=== PATIENT | male | born 1975 | race Caucasian/White ===

== ENCOUNTER 2016-07-22 22:37 | Emergency (ER) | payer BC ==
[2016-07-22 22:42] VITALS: TEMP 97.6
[2016-07-22] MEDS ORDERED: ASPIRIN 81 MG CHEW PO STA (22:58)
--- NOTE | 2016-07-22 23:00 | ED ---
Chest Pain HPI - General Chief Complaint: Chest Pain Stated Complaint: CHEST PAIN Time Seen by Provider: 07/22/16 22:49 Source: patient Mode of arrival: ambulatory Limitations: no limitations - History of Present Illness Initial Comments: This patient is a 40-year-old man who complains of having left-sided chest pain that started around 4 AM yesterday when he was on a flight here from [facility]. The patient had spent the last week there on vacation. The patient states that the pain is aching, constant, 9 out of 10. He has noted it is worse if he lies back. It is somewhat relieved if he sits up. The patient also has had a bit of a nonproductive cough associated. MD Complaint: chest pain Onset/Timin -: hour(s) Onset: during rest Pain Location: left chest Pain Radiation: other (Left shoulder) Severity: severe Severity scale (1-10): 9 Quality: aching Consistency: constant Improves With: nothing Worsens With: inspiration, supine Context: recent travel Other Symptoms: cough Treatments Prior to Arrival: none - Related Data Home Medications Medication Instructions Recorded Confirmed Hydrocodone/Acetaminophen [Lortab 1 tab PO TID PRN 10/30/14 07/22/16 10-325 mg Tablet] Gabapentin [Neurontin] 300 mg PO TID 07/22/16 07/22/16 Previous Rx's Medication Instructions Recorded Azithromycin [Zithromax Z-pack] 250 mg PO DIRECTED #6 tab 07/23/16 Ibuprofen [Motrin] 800 mg PO Q8HR PRN #20 tab 07/23/16 Allergies Allergy/AdvReac Type Severity Reaction Status Date / Time No Known Allergies Allergy Verified 07/22/16 23:05 Review of Systems ROS Statement: Those systems with pertinent positive or pertinent negative responses have been documented in the HPI. ROS Other: All systems not noted in ROS Statement are negative. Constitutional: Denies: fever, chills Respiratory: Reports: cough, dyspnea. Denies: wheezes, hemoptysis Cardiovascular: Reports: chest pain. Denies: palpitations, dyspnea on exertion , orthopnea, edema, syncope Gastrointestinal: Denies: abdominal pain, nausea, vomiting Genitourinary: Denies: dysuria, hematuria Musculoskeletal: Denies: back pain Skin: Denies: rash Neurological: Denies: headache, weakness, numbness EKG Findings - EKG Results: EKG: interpreted by SAMANTHA HOUSE, sinus rhythm (Rate 98 bpm), normal axis, normal QRS, normal ST/T, no acute changes Past Medical History Past Medical History: No Reported History Additional Past Medical History / Comment(s): neuropathy History of Any Multi-Drug Resistant Organisms: None Reported Past Surgical History: Orthopedic Surgery Additional Past Surgical History / Comment(s): back fusion x 2 Past Psychological History: No Psychological Hx Reported Smoking Status: Current every day smoker Past Alcohol Use History: Rare Past Drug Use History: None Reported General Exam Limitations: no limitations General appearance: alert, in no apparent distress Head exam: Present: atraumatic, normocephalic Eye exam: Present: normal appearance. Absent: scleral icterus, conjunctival injection ENT exam: Present: normal oropharynx Neck exam: Present: normal inspection Respiratory exam: Present: normal lung sounds bilaterally. Absent: respiratory distress, wheezes, rales, rhonchi, stridor, chest wall tenderness, accessory muscle use, decreased breath sounds, prolonged expiratory Cardiovascular Exam: Present: regular rate, normal rhythm, normal heart sounds. Absent: systolic murmur, diastolic murmur, rubs, gallop GI/Abdominal exam: Present: soft. Absent: distended, tenderness, guarding, rebound Extremities exam: Present: normal inspection, normal capillary refill. Absent: pedal edema, calf tenderness Back exam: Present: normal inspection. Absent: CVA tenderness (R), CVA tenderness (L) Neurological exam: Present: alert Skin exam: Present: warm, dry, intact, normal color. Absent: rash Course Vital Signs 07/22/16 22:39 Temperature 97.6 F Pulse Rate 102 H Respiratory 20 Rate Blood Pressure 141/87 O2 Sat by Pulse 97 Oximetry Disposition Clinical Impression: Pleuritis Narrative: Possible pneumonia Disposition: HOME SELF-CARE Condition: Good Instructions: Pleurisy (ED), Pneumonia (ED) Prescriptions: Azithromycin [Zithromax Z-pack] 250 mg PO DIRECTED #6 tab Ibuprofen [Motrin] 800 mg PO Q8HR PRN #20 tab PRN Reason: Pain Referrals: None,Stated [Primary Care Provider] - 1-2 days Katherin Aguirre MD [REFERRING] - 1-2 days
[2016-07-22] MEDS ORDERED: RX INFO: IV CONTRAST WAS GIVEN 1 EACH MISC MISCELLANE PRN (23:01)
[2016-07-22] MEDS ORDERED: SODIUM CHLORIDE 0.9% 1,000 ML IV ONE (23:07)
[2016-07-22 23:12] LABS: Basophils # (A) 0.2 k/uL (0-0.2); Basophils % (A) 1 %; CH 32.5; CHCM 34.8; Eosinophils # (A) 0.6 k/uL (0-0.7); Eosinophils % (A) 5 %; HCT 46.4 % (39.0-53.0); HDW 2.43; HGB 15.5 gm/dL (13.0-17.5); Luc % (Auto) 2; Lymphocytes % (A) 34 %; MCH 31.5 pg (25.0-35.0); MCHC 33.5 g/dL (31.0-37.0); MCV 93.9 fL (80.0-100.0); Monocytes # (A) 0.5 k/uL (0-1.0); Monocytes % (A) 5 %; Neutrophils # (A) 6.2 k/uL (1.3-7.7); Neutrophils % (A) 54 %; RBC 4.94 m/uL (4.30-5.90); RDW 13.8 % (11.5-15.5); WBC 11.7 k/uL (3.8-10.6); WBC (Perox) 10.87
[2016-07-22 23:24] LABS: ALT 32 U/L (21-72); AST 22 U/L (17-59); Alkaline Phosphatase 87 U/L (38-126); Amylase 64 U/L (30-110); Anion Gap 10 mmol/L; Blood Urea Nitrogen 15 mg/dL (9-20); Calcium 9.4 mg/dL (8.4-10.2); Carbon Dioxide 25 mmol/L (22-30); Chloride 102 mmol/L (98-107); Glucose 109 mg/dL (74-99); Magnesium 1.7 mg/dL (1.6-2.3); Non-African American GFR(MDRD) >60 (>60 ml/min/1.73 sqM); Potassium 3.8 mmol/L (3.5-5.1); Sodium 137 mmol/L (137-145); Total Bilirubin 0.5 mg/dL (0.2-1.3); Total Protein 7.1 g/dL (6.3-8.2)
[2016-07-22 23:28] LABS: Partial Thromboplastin Time 27.2 sec (22.0-30.0)
--- NOTE | 2016-07-22 23:46 | CT ---
EXAM: CT Angiography Chest With Intravenous Contrast. CLINICAL HISTORY: Reason: Pain TECHNIQUE: Axial computed tomographic angiography images of the chest with intravenous contrast using pulmonary embolism protocol. CTDI is 9.9 mGy and DLP is 355.6 mGy-cm This CT exam was performed using one or more of the following dose reduction techniques: automated exposure control, adjustment of the mA and/or kV according to patient size, and/or use of iterative reconstruction technique. MIP reconstructed images were created and reviewed. Coronal and sagittal reformatted images were created and reviewed. COMPARISON: No relevant prior studies available. FINDINGS: Pulmonary arteries: No evidence of pulmonary embolism. Aorta: No acute findings. No thoracic aortic aneurysm. Lungs: Extensive paraseptal and centrilobular emphysematous changes seen bilaterally. Left basilar platelike atelectasis. Right basilar atelectasis. Pleural space: Unremarkable. No significant effusion. No pneumothorax. Heart: Unremarkable. No cardiomegaly. No significant pericardial effusion. No evidence of RV dysfunction. Bones/joints: No acute fracture. No dislocation. Soft tissues: Unremarkable. Lymph nodes: Prevascular node measuring up to 17 mm. Paratracheal lymph nodes measuring up to 18 mm. Subcarinal lymph node measuring up to 15 mm. IMPRESSION: 1. No evidence of pulmonary embolism. 2. Extensive paraseptal and centrilobular emphysematous changes seen bilaterally. 3. Left basilar platelike atelectasis. Right basilar atelectasis. 4. Nonspecific mildly prominent mediastinal lymph nodes as described.
[2016-07-23] MEDS ORDERED: AZITHROMYCIN 500 MG TAB PO STA (00:28)
[2016-07-23 01:14] VITALS: BP 124/86; PULSE 89; RESP 16
== END 2016-07-23 01:14 | disposition home or self-care (01) ==
LOC: EC 22:37
DX: R09.1 Pleurisy (principal); M25.512 Pain in left shoulder; G62.9 Polyneuropathy, unspecified; F17.200 Nicotine dependence, unspecified, uncomplicated; Z79.899 Other long term (current) drug therapy
CPT/HCPCS: 36415; 93005; 85379; 80053; 82150; 83690; 83735; 84484; 85025; 85610; 85730; 71275; 99285; 96365; 96361; Q9967; J0696

== ENCOUNTER → 2018-06-08 | Outpatient (CLI) | payer BC ==
[2018-06-08 11:02] LABS: HCT 51.3 % (39.0-53.0); HGB 16.9 gm/dL (13.0-17.5); MCH 31.5 pg (25.0-35.0); MCHC 32.9 g/dL (31.0-37.0); MCV 95.9 fL (80.0-100.0); Mean Platelet Volume 6.4; Platelet Count 291 k/uL (150-450); RBC 5.35 m/uL (4.30-5.90); RDW 13.5 % (11.5-15.5); WBC 11.1 k/uL (3.8-10.6)
== END ==
LOC: LABPAT 10:00
PROVIDERS: ATTEND Surgery
DX: Z01.812 Encounter for preprocedural laboratory examination (principal); K43.9 Ventral hernia without obstruction or gangrene; K43.2 Incisional hernia without obstruction or gangrene
CPT/HCPCS: 36415; 85027

== ENCOUNTER 2018-06-10 07:41 | Day surgery (SDC) | payer BC ==
[~2018-06-10 07:41] MED LIST: HEPARIN SODIUM,PORCINE 5,000 UNIT/ML 1 ML VIAL SQ ONE; ceFAZolin IN SWFI 2 GM/20 ML SYRINGE IVP ONE
[2018-06-10] MEDS ORDERED: LACTATED RINGERS 1,000 ML IV SCH (07:48)
[2018-06-10] MEDS ORDERED: SCOPOLAMINE 1.5MG/72HR PATCH TRANSDERM ONE (07:48)
[2018-06-10] MEDS ORDERED: DEXAMETHASONE SOD PHOSPHATE 10 MG/ML 1 ML VIAL IV ONE (07:48)
[2018-06-10] MEDS ORDERED: HYDROmorphone 0.5 MG/0.5 ML SYRINGE IVP PRN (07:48)
[2018-06-10] MEDS ORDERED: LIDOCAINE 1% 20 ML VIAL (10MG/ML) FOR IV START INTRADERMA PRN (07:48)
[2018-06-10] MEDS ORDERED: ONDANSETRON 4 MG/2 ML VIAL IVP ONE (07:48)
[2018-06-10] MEDS ORDERED: MIDAZOLAM (PF) 2 MG/2 ML VIAL IV PRN (07:48)
[2018-06-10 08:04] VITALS: TEMP 97.4
--- NOTE | 2018-06-10 09:47 | P.GSHP ---
History of Present Illness H&P Date: 06/10/18 Chief Complaint: Ventral hernia Patient on our service. Patient has a history of a ventral hernia. Previously was not causing him any trouble. Recently he was on a cruise however and developed acute pain at the hernia site. This eventually became reduced in size and his pain improved. He came back to [place] and call my office to schedule repair. Still causing mild discomfort. No change in bowel habits. No nausea or vomiting. Past Medical History Past Medical History: No Reported History Additional Past Medical History / Comment(s): neuropathy, right leg (POST BACK SURGERIES). History of Any Multi-Drug Resistant Organisms: None Reported Past Surgical History: Back Surgery, Ear Surgery, Hernia Repair Additional Past Surgical History / Comment(s): laminectomy x 2. left ear reconstruction. bilateral ing hernias. undescended testical Past Anesthesia/Blood Transfusion Reactions: No Reported Reaction Past Psychological History: No Psychological Hx Reported Smoking Status: Current every day smoker Past Alcohol Use History: Rare Additional Past Alcohol Use History / Comment(s): 1PPD FOR 20 YRS. Past Drug Use History: None Reported - Past Family History Mother Family Medical History: Cancer Father Family Medical History: Cancer Medications and Allergies Home Medications Medication Instructions Recorded Confirmed Type No Known Home Medications 06/08/18 06/10/18 History Allergies Allergy/AdvReac Type Severity Reaction Status Date / Time No Known Allergies Allergy Verified 06/10/18 07:51 Surgical - Exam Vital Signs Temp Pulse Resp BP Pulse Ox 97.4 F L 103 H 18 122/80 94 L 06/10/18 08:02 06/10/18 08:02 06/10/18 08:02 06/10/18 08:02 06/10/18 08:02 Physical exam: General: Well-developed, well-nourished HEENT: Normocephalic, sclerae nonicteric Abdomen: Nontender, nondistended, incarcerated ventral hernia 4-5 cm above the umbilicus slightly to the right of midline Extremities: No edema Neuro: Alert and oriented Assessment and Plan (1) Incarcerated ventral hernia Narrative/Plan: Will proceed with operative repair open of this hernia with mesh. Risks of bleeding, infection, recurrence, bladder and bowel injury, numbness, nerve injury were discussed with the patient. The patient understands and wishes to proceed. Current Visit: Yes Status: Acute Code(s): K43.6 - OTHER AND UNSP VENTRAL HERNIA WITH OBSTRUCTION, W/O GANGRENE SNOMED Code(s): 376980263
[2018-06-10] MEDS ORDERED: MIDAZOLAM 2 MG/2 ML VIAL ONE (10:00)
[2018-06-10] MEDS ORDERED: KETOROLAC 30 MG/ML 1 ML VIAL ONE (10:00)
[2018-06-10] MEDS ORDERED: SUCCINYLCHOLINE CHLORIDE 100 MG/5 ML SYR IV ONE (10:00)
[2018-06-10] MEDS ORDERED: fentaNYL (PF) 50 MCG/ML 2 ML AMP ONE (10:00)
[2018-06-10] MEDS ORDERED: ROCURONIUM BROMIDE 10 MG/ML 10 ML VIAL IV ONE (10:00)
[2018-06-10] MEDS ORDERED: PROPOFOL 10 MG/ML 20 ML VIAL IV ONE (10:00)
[2018-06-10] MEDS ORDERED: NEOSTIGMINE 1 MG/ML 10 ML VIAL ONE (10:00)
[2018-06-10] MEDS ORDERED: GLYCOPYRROLATE 0.2 MG/ML 2 ML VIAL ONE (10:00)
[2018-06-10] MEDS ORDERED: LIDOCAINE 1% INJ 10MG/ML (20 ML MDV) ONE (10:00)
[2018-06-10] MEDS ORDERED: ceFAZolin 1,000 MG VIAL ONE (10:00)
[2018-06-10] MEDS ORDERED: BUPIVACAINE (PF) 0.25% 30 ML VIAL SQ ONE (10:25)
[2018-06-10] MEDS ORDERED: HYDROcodone/APAP 5-325MG 1 EACH TAB PO PRN (10:51)
[2018-06-10] MEDS ORDERED: NALOXONE 0.4 MG/ML 1 ML VIAL IV PRN (10:51)
--- NOTE | 2018-06-10 10:55 | P.OP ---
Date of Procedure: 06/10/18 Procedure(s) Performed: PREOPERATIVE DIAGNOSIS: Incarcerated the ventral hernia POSTOPERATIVE DIAGNOSIS: Same PROCEDURE: Incarcerated the ventral hernia with mesh SURGEON: Shaji EBL: Minimal ANESTHESIA: Gen. COMPLICATIONS: None OPERATIVE PROCEDURE: Patient placed on the operating table in the supine position. Abdomen was prepped and draped in usual sterile fashion. An incision was made superior to the umbilicus vertically overlying the palpable mass. Dissection through the subcutaneous tissues took place using electrocautery. The patient's hernia sac was identified. The hernia sac was carefully dissected down to the level of the fascia where it was excised. A single defect was identified measuring 1 cm in size. The edges were debrided creating a slightly larger opening. The 4.3 ventral ex mesh was placed in the preperitoneal space. This was sutured in place using interrupted 0 Ethibond sutures. The defect in the fascia was then reapproximated in a horizontal manner using a vest over pants fashion. This took place using 0 Ethibond sutures. The folding edge was tacked down using 0 Ethibond sutures as well. The subcutaneous tissues were closed using 3-0 Vicryl sutures. The skin was closed 4-0 Monocryl sutures. Skin glue was then applied. DISPOSITION: Stable to recovery room
[2018-06-10 11:45] VITALS: RESP 16
[2018-06-10] MEDS ORDERED: HYDROcodone/APAP 5-325MG 1 EACH TAB PO ONE (12:31)
[2018-06-10 12:45] VITALS: BP 118/77; PULSE 73
== END 2018-06-10 13:00 | disposition home or self-care (01) ==
LOC: OR 07:41
PROVIDERS: ATTEND Surgery
DX: K43.6 Other and unspecified ventral hernia with obstruction, without gangrene (principal); F17.210 Nicotine dependence, cigarettes, uncomplicated
CPT/HCPCS: 86900; 86901; 86850; 88302; 49561; 49568; C1781; J2250; J1644; J1100; J2710; J2405; J0690 ×2; J2001; J3010; J1885; J0330; J2704; J1170

== ENCOUNTER → 2020-07-05 | Outpatient (CLI) | payer BC ==
--- NOTE | 2020-07-05 16:15 | XR ---
EXAMINATION TYPE: XR chest 2V DATE OF EXAM: 07/05/2020 COMPARISON: 11/18/2014 HISTORY: Chest pain TECHNIQUE: Frontal and lateral views of the chest are obtained. FINDINGS: There is no focal air space opacity. No evidence for pneumothorax. No pleural effusion. The cardiac silhouette size is within normal limits. The osseous structures are grossly intact. IMPRESSION: 1. No acute cardiopulmonary process.
== END | disposition home or self-care (01) ==
LOC: RADXRMAIN 15:51
PROVIDERS: ATTEND Family Medicine
DX: J44.9 Chronic obstructive pulmonary disease, unspecified (principal)
CPT/HCPCS: 71046

== ENCOUNTER 2021-03-21 22:47 | Emergency (ER) | payer BC ==
[2021-03-21 22:54] VITALS: TEMP 100
[2021-03-21 23:20] VITALS: BP 133/83; PULSE 99; RESP 18
[2021-03-22] MEDS ORDERED: ACETAMINOPHEN TAB 500 MG TAB PO STA (00:06)
[2021-03-22] MEDS ORDERED: IBUPROFEN 600 MG TAB PO STA (00:06)
--- NOTE | 2021-03-22 00:19 | ED ---
URI HPI - General Chief Complaint: Upper Respiratory Infection Stated Complaint: Fever, headache, nausea, Covid exposure Time Seen by Provider: 03/21/21 22:58 Source: patient, RN notes reviewed Mode of arrival: ambulatory Limitations: no limitations - History of Present Illness Initial Comments: 45-year-old male presents emergency Department with chief complaint of Hospital COVID-19. Patient states his son tested positive. Patient states he took at home tests which was negative when he developed symptoms today. Patient does complain of fever bodyaches slight cough, no taste. Patient denies any increasing shortness of breath patient does have COPD. Patient denies any GI symptoms including nausea, vomiting, diarrhea constipation. - Related Data Previous Rx's Medication Instructions Recorded Hydrocodone/Acetaminophen [[place] 1 tab PO Q6HR PRN 3 Days #10 tab 06/10/18 5-325] Allergies Allergy/AdvReac Type Severity Reaction Status Date / Time No Known Allergies Allergy Verified 03/21/21 22:51 Review of Systems ROS Statement: Those systems with pertinent positive or pertinent negative responses have been documented in the HPI. ROS Other: All systems not noted in ROS Statement are negative. Past Medical History Past Medical History: COPD Additional Past Medical History / Comment(s): neuropathy, right leg (POST BACK SURGERIES). History of Any Multi-Drug Resistant Organisms: None Reported Past Surgical History: Back Surgery, Ear Surgery, Hernia Repair Additional Past Surgical History / Comment(s): laminectomy x 2. left ear reconstruction. bilateral ing hernias. undescended testical Past Anesthesia/Blood Transfusion Reactions: No Reported Reaction Past Psychological History: No Psychological Hx Reported Smoking Status: Current every day smoker Past Alcohol Use History: None Reported Past Drug Use History: None Reported - Past Family History Mother Family Medical History: Cancer Father Family Medical History: Cancer General Exam Limitations: no limitations General appearance: alert, in no apparent distress Head exam: Present: atraumatic, normocephalic, normal inspection Eye exam: Present: normal appearance, PERRL, EOMI. Absent: scleral icterus, conjunctival injection, periorbital swelling ENT exam: Present: normal exam, normal oropharynx, mucous membranes moist Neck exam: Present: normal inspection. Absent: tenderness, meningismus, lymphadenopathy Respiratory exam: Present: normal lung sounds bilaterally. Absent: respiratory distress, wheezes, rales, rhonchi, stridor Cardiovascular Exam: Present: normal rhythm, tachycardia, normal heart sounds. Absent: systolic murmur, diastolic murmur, rubs, gallop, clicks Course Vital Signs 03/21/21 03/21/21 22:51 23:17 Temperature 100.0 F H Pulse Rate 109 H 99 Respiratory 20 18 Rate Blood Pressure 135/93 133/83 O2 Sat by Pulse 99 Oximetry Medical Decision Making - Medical Decision Making Patient's positive for COVID-19. Patient did have noted fevers given antipyretics. Patient did receive monoclonal antibodies will be discharged in stable condition return parameters were discussed. - Lab Data Lab Results 03/21/21 Range/Units 22:57 Coronavirus (PCR) Detected A (Not Detectd) Disposition Clinical Impression: COVID-19 Disposition: HOME SELF-CARE Condition: Stable Instructions (If sedation given, give patient instructions): Coronavirus Disease 2019 (COVID-19) Additional Instructions: Please return to the Emergency Department if symptoms worsen or any other concerns. Is patient prescribed a controlled substance at d/c from ED?: No Referrals: Baron Worley MD [Primary Care Provider] - 1-2 days Time of Disposition: 00:18
[2021-03-22] MEDS ORDERED: SODIUM CHLORIDE 0.9% 50 ML IVPB ONE (00:45)
[2021-03-22] MEDS ORDERED: CASIRIVIMAB (REGN10933) (EUA) 600 MG, IMDEVIMAB (REGN10987) (EUA) 600 MG in SODIUM CHLO... IVPB ONE (01:00)
== END 2021-03-22 02:33 | disposition home or self-care (01) ==
LOC: EC 22:47
DX: U07.1 COVID-19 (principal); J44.9 Chronic obstructive pulmonary disease, unspecified; F17.200 Nicotine dependence, unspecified, uncomplicated
CPT/HCPCS: 99283; 96360; 87635; Q0244

== ENCOUNTER 2021-07-12 23:14 | Emergency (ER) | payer BC ==
[2021-07-13 00:27] VITALS: TEMP 97.1
[2021-07-13] MEDS ORDERED: ACETAMINOPHEN TAB 500 MG TAB PO STA ×2 (01:30→02:30)
[2021-07-13] MEDS ORDERED: KETOROLAC 15 MG/ML 1 ML VIAL IM STA (01:30)
[2021-07-13 02:25] VITALS: BP 151/99; PULSE 87; RESP 18
--- NOTE | 2021-07-13 02:34 | XR ---
EXAMINATION TYPE: XR thoracic spine 2V DATE OF EXAM: 07/13/2021 COMPARISON: NONE HISTORY: Back pain TECHNIQUE: 3 views FINDINGS: Thoracic vertebra have normal spacing and alignment. Posterior elements are intact. There i s no paraspinal mass. There is no compression fracture. IMPRESSION: Negative thoracic spine exam.
--- NOTE | 2021-07-13 02:36 | XR ---
EXAMINATION TYPE: XR cervical spine comp DATE OF EXAM: 07/13/2021 COMPARISON: NONE HISTORY: Neck pain TECHNIQUE: 5 view FINDINGS: Cervical vertebra have normal alignment. Disc spaces are fairly normal. Posterior elements are intact. The neural foramina are well-maintained. Atlantoaxial facet joints are normal. There are no cervical ribs. IMPRESSION: Negative cervical spine exam.
--- NOTE | 2021-08-10 04:12 | ED ---
Back Pain HPI - General Chief Complaint: Back Pain/Injury Stated Complaint: Neck Swelling Time Seen by Provider: 07/13/21 01:20 Source: patient - History of Present Illness Initial Comments: This is a pleasant 45-year-old male who presents to the emergency department stating that he sneezed and pulled a muscle in his neck. Patient states that he felt like there was a lump between her shoulder blades. Patient denying any other symptomology. It is sharp, exacerbated by movement, alleviated by rest, no radiation. She does have a history of bad back. No headache, no fever or chills, no changes in vision or hearing, no sore throat or difficulty with speech,, no chest pain or shortness of breath, no abdominal pain, no nausea or vomiting, no changes in urination or bowel movements, no numbness or tingling, no extremity pain, no skin rashes or lesions. - Related Data Previous Rx's Medication Instructions Recorded Hydrocodone/Acetaminophen [[place] 1 tab PO Q6HR PRN 3 Days #10 tab 06/10/18 5-325] Acetaminophen [Tylenol] 500 mg PO Q4-6H PRN #24 tab 07/13/21 Cyclobenzaprine [Flexeril] 10 mg PO TID PRN #20 tab 07/13/21 Ibuprofen [Motrin] 600 mg PO Q8HR PRN #30 tab 07/13/21 Allergies Allergy/AdvReac Type Severity Reaction Status Date / Time No Known Allergies Allergy Verified 07/13/21 00:27 Review of Systems ROS Statement: Those systems with pertinent positive or pertinent negative responses have been documented in the HPI. ROS Other: All systems not noted in ROS Statement are negative. Past Medical History Past Medical History: COPD Additional Past Medical History / Comment(s): neuropathy, right leg (POST BACK SURGERIES) History of Any Multi-Drug Resistant Organisms: None Reported Past Surgical History: Back Surgery, Ear Surgery, Hernia Repair Additional Past Surgical History / Comment(s): laminectomy x 2. left ear reconstruction. bilateral ing hernias. undescended testical, "throat" scope done 06/2021 Past Anesthesia/Blood Transfusion Reactions: No Reported Reaction Past Psychological History: No Psychological Hx Reported Smoking Status: Current every day smoker Past Alcohol Use History: None Reported Past Drug Use History: None Reported - Past Family History Mother Family Medical History: Cancer Father Family Medical History: Cancer General Exam General appearance: alert, in no apparent distress Head exam: Present: atraumatic, normocephalic, normal inspection Eye exam: Present: normal appearance, PERRL, EOMI. Absent: scleral icterus, conjunctival injection, periorbital swelling ENT exam: Present: normal exam, mucous membranes moist Neck exam: Present: normal inspection, tenderness (Mild tenderness and cervical paraspinals and trapezius area. No midline tenderness.), full ROM. Absent: meningismus, lymphadenopathy Respiratory exam: Present: normal lung sounds bilaterally. Absent: respiratory distress, wheezes, rales, rhonchi, stridor Cardiovascular Exam: Present: regular rate, normal rhythm, normal heart sounds. Absent: systolic murmur, diastolic murmur, rubs, gallop, clicks GI/Abdominal exam: Present: soft, normal bowel sounds. Absent: distended, tenderness, guarding, rebound, rigid Extremities exam: Present: normal inspection, full ROM, normal capillary refill. Absent: tenderness, pedal edema, joint swelling, calf tenderness Back exam: Present: normal inspection Neurological exam: Present: alert, oriented X3, CN II-XII intact Psychiatric exam: Present: normal affect, normal mood Skin exam: Present: warm, dry, intact, normal color. Absent: rash Course Vital Signs 07/13/21 07/13/21 00:22 02:24 Temperature 97.1 F L Pulse Rate 88 87 Respiratory 19 18 Rate Blood Pressure 145/99 151/99 O2 Sat by Pulse 99 98 Oximetry Medical Decision Making - Medical Decision Making -There are no red flags for concerning back pathology. Specifically: -No history of cancer, this is not a mass effect, MRI not indicated. -No anticoagulation, this is not a bleed. -No fevers, no IVDU, this is not an infectious process. -With a normal neuro exam, and no urinary or bowel retention or incontinence, there is no clinical sign of motor defect or cauda equina - MRI is not indicated at this point. -No pulsating abdominal mass or risk factors for AAA. -Pain is relieved with rest, which is also less concerning. -I do not believe that x-rays or emergent MRI is indicated at this time. -We will treat symptomatically and discharge home with follow up instructions. -Stretching/strengthening exercise given to patient and they will be referred to physical therapy -Patient is instructed to use [id number] analgesics as directed on packaging for pain. Disposition Clinical Impression: Cervical strain, acute Disposition: HOME SELF-CARE Condition: Stable Instructions (If sedation given, give patient instructions): Cervical Strain (ED) Additional Instructions: Follow-up with your regular physician as directed. Return to the ER immediately if any symptoms worsen, new symptoms arise, or any other problems develop. Prescriptions: Cyclobenzaprine [Flexeril] 10 mg PO TID PRN #20 tab PRN Reason: Spasms Ibuprofen [Motrin] 600 mg PO Q8HR PRN #30 tab PRN Reason: Pain Acetaminophen [Tylenol] 500 mg PO Q4-6H PRN #24 tab PRN Reason: Pain Is patient prescribed a controlled substance at d/c from ED?: No Referrals: Baron Worley MD [Primary Care Provider] - 1-2 days
== END 2021-07-13 03:36 | disposition home or self-care (01) ==
LOC: EC 23:14
DX: S16.1XXA Strain of muscle, fascia and tendon at neck level, initial encounter (principal); J44.9 Chronic obstructive pulmonary disease, unspecified; F17.200 Nicotine dependence, unspecified, uncomplicated; X58.XXXA Exposure to other specified factors, initial encounter
CPT/HCPCS: 72070; 72050; 99283; 96372; J1885

== ENCOUNTER 2023-05-03 11:50 | Emergency (ER) | payer BC ==
[2023-05-03] MEDS ORDERED: SODIUM CHLORIDE 0.9% 1,000 ML IV STA (12:27)
--- NOTE | 2023-05-03 13:05 | CT ---
EXAMINATION TYPE: CT brain javier frankel con DATE OF EXAM: 05/03/2023 COMPARISON: None HISTORY: syncopoe CT DLP: 1304.6 mGycm Automated exposure control for dose reduction was used. TECHNIQUE: CT scan of the head and cervical spine are performed without contrast. Head CT: Ventricles, basal cisterns and sulci over convexities within normal limits and there is no mass, mass effect or shift of midline structures. No abnormal density is seen throughout the brain parenchyma and there is no acute intra or extra-axia l hemorrhage. Posterior fossa including the brainstem, fourth ventricle and cerebellar pontine angles are grossly n ormal. The intraorbital contents appear normal and symmetric. There is a small mucous retention cyst or poly p in the right maxillary sinus. CT cervical spine: Craniovertebral junction relationships and prevertebral soft tissues are normal. The cervical vertebral segments are normal in height and alignment and there is no fracture subluxati on. There is mild degenerative disease at the C5-6 and C6-7 levels. The bony cervical canal is widely patent. There is mild bony encroachment of the left C6-7 neural for marcus. The paraspinal soft tissues unremarkable. IMPRESSION: 1. Head CT: No acute bleed or mass effect. Mild chronic right maxillary sinusitis. 2. CT cervical spine: No acute trauma. Mild degenerative change in the lower cervical spine as descri bed.
--- NOTE | 2023-05-03 13:08 | XR ---
EXAMINATION TYPE: XR chest 2V DATE OF EXAM: 05/03/2023 COMPARISON: 07/05/2020 HISTORY: Syncope TECHNIQUE: Frontal and lateral views of the chest are obtained. FINDINGS: Forearm there is hazy and fine reticular opacity in the right middle lobe possibly representing a pne umonic infiltrate and clinical correlation is recommended. Left lung is clear. Heart and pulmonary vasculature are normal. The osseous structures are intact IMPRESSION: Development of infiltrate in the right middle lobe. Possible pneumonia. Clinical correlation follow-u p to resolution is recommended.
--- NOTE | 2023-05-03 13:17 | ED ---
General Adult HPI - General Chief complaint: Syncope Stated complaint: syncope Time Seen by Provider: 05/03/23 12:15 Source: patient, RN notes reviewed Mode of arrival: ambulatory Limitations: no limitations - History of Present Illness Initial comments: 47-year-old male presents emergency Department with chief complaint of syncopal episode. Patient states his walking his dog states she started not feeling well became very hot flushed feeling states that he passed on his back. Patient states that he defecated and urinated that time. He states he did have mild head injury. Patient denies any chest pain now but states he did have mild chest discomfort shortness breath. Patient denies any significant cardiac history denies any history of seizures. Patient states that he went to clean himself up and passed out again he states he felt common states he gets very flushed, hot feeling and states his tunnel vision. - Related Data Previous Rx's Medication Instructions Recorded Hydrocodone/Acetaminophen [[place] 1 tab PO Q6HR PRN 3 Days #10 tab 06/10/18 5-325] Acetaminophen [Tylenol] 500 mg PO Q4-6H PRN #24 tab 07/13/21 Cyclobenzaprine [Flexeril] 10 mg PO TID PRN #20 tab 07/13/21 Ibuprofen [Motrin] 600 mg PO Q8HR PRN #30 tab 07/13/21 Allergies Allergy/AdvReac Type Severity Reaction Status Date / Time No Known Allergies Allergy Verified 05/03/23 16:04 Review of Systems ROS Statement: Those systems with pertinent positive or pertinent negative responses have been documented in the HPI. ROS Other: All systems not noted in ROS Statement are negative. Past Medical History Past Medical History: COPD Additional Past Medical History / Comment(s): neuropathy, right leg (POST BACK SURGERIES) History of Any Multi-Drug Resistant Organisms: None Reported Past Surgical History: Back Surgery, Ear Surgery, Hernia Repair Additional Past Surgical History / Comment(s): laminectomy x 2. left ear reconstruction. bilateral ing hernias. undescended testical, "throat" scope done 06/2021 Past Anesthesia/Blood Transfusion Reactions: No Reported Reaction Past Psychological History: No Psychological Hx Reported Smoking Status: Current every day smoker Past Alcohol Use History: None Reported Past Drug Use History: None Reported - Past Family History Mother Family Medical History: Cancer Father Family Medical History: Cancer General Exam Limitations: no limitations General appearance: alert, in no apparent distress Head exam: Present: atraumatic, normocephalic, normal inspection Eye exam: Present: normal appearance, PERRL, EOMI. Absent: scleral icterus, conjunctival injection, periorbital swelling ENT exam: Present: normal exam, normal oropharynx, mucous membranes moist Neck exam: Present: normal inspection, full ROM. Absent: tenderness, meningismus, lymphadenopathy Respiratory exam: Present: normal lung sounds bilaterally. Absent: respiratory distress, wheezes, rales, rhonchi, stridor Cardiovascular Exam: Present: regular rate, normal rhythm, normal heart sounds. Absent: systolic murmur, diastolic murmur, rubs, gallop, clicks Back exam: Present: normal inspection, full ROM. Absent: tenderness Neurological exam: Present: alert, oriented X3, CN II-XII intact, reflexes normal. Absent: motor sensory deficit Course Vital Signs 05/03/23 05/03/23 05/03/23 12:08 12:29 13:33 Temperature 98 F Pulse Rate 100 102 H Respiratory 20 16 Rate Blood Pressure 100/71 119/82 Blood Pressure 110/81 [Right Arm Sitting] Blood Pressure 112/78 [Right Arm Standing] Blood Pressure 118/83 [Right Arm Supine] O2 Sat by Pulse 99 95 Oximetry 05/03/23 05/03/23 14:00 15:07 Temperature Pulse Rate 103 H 91 Respiratory 18 16 Rate Blood Pressure 126/84 135/83 Blood Pressure [Right Arm Sitting] Blood Pressure [Right Arm Standing] Blood Pressure [Right Arm Supine] O2 Sat by Pulse 98 Oximetry EKG Findings - EKG Comments: EKG Findings:: EKG performed at 12:23 sinus tachycardia rate of 100 per 172 QRS 71 QT/QTC 321/378 - EKG Results: EKG: interpreted by ERMD Medical Decision Making - Medical Decision Making Was pt. sent in by a medical professional or institution (, PA, BEARINGIZER, urgent care, hospital, or shelter...) When possible be specific @ -No Did you speak to anyone other than the patient for history (EMS, parent, family, police, friend...)? What history was obtained from this source @ -No Did you review nursing and triage notes (agree or disagree)? Why? @ -I reviewed and agree with nursing and triage notes Were old charts reviewed (outside hosp., previous admission, EMS record, old EKG, old radiological studies, urgent care reports/EKG's, shelter records)? Report findings @ -No old charts were reviewed Differential Diagnosis (chest pain, altered mental status, abdominal pain women, abdominal pain men, vaginal bleeding, weakness, fever, dyspnea, syncope, headache, dizziness, GI bleed, back pain, seizure, CVA, palpatations, mental health, musculoskeletal)? @ -Differential Syncope: Valvular disease, hypertrophic cardiomyopathy, pulmonary embolism, tamponade, tachycardia, bradycardia, DE, hypovolemia, hemorrhage, dissection, anemia, intracranial hemorrhage, seizure, hypoglycemia, carbon monoxide poisoning, this is not meant to be an all-inclusive list.e EKG interpreted by me (3pts min.). @ -As above X-rays interpreted by me (1pt min.). @ -Chest x-ray shows COPD changes CT interpreted by me (1pt min.). @ -[CT brain, C-spine showing no acute intracranial hemorrhage, mass effect, cervical fracture or malalignment CT angiography for PE chest negative for acute abnormality no PE no infiltrate U/S interpreted by me (1pt. min.). @ -None done What testing was considered but not performed or refused? (CT, X-rays, U/S, labs)? Why? @ -None What meds were considered but not given or refused? Why? @ -None Did you discuss the management of the patient with other professionals (marlene le i.e. , PA, BEARINGIZER, lab, RT, psych nurse, 7th grade social studies teacher, senior field engineer, teacher, quality officer, case assembler)? Give summary @ -No Was smoking cessation discussed for >3mins.? @ -No Was critical care preformed (if so, how long)? @ -No Were there social determinants of health that impacted care today? How? (Homelessness, low income, unemployed, alcoholism, drug addiction, transportation, low edu. Level, literacy, decrease access to med. care, fci, rehab)? @ -No Was there de-escalation of care discussed even if they declined (Discuss DNR or withdrawal of care, Hospice)? DNR status @ -No What co-morbidities impacted this encounter? (DM, HTN, Smoking, COPD, CAD, Cancer, CVA, ARF, Chemo, Hep., AIDS, mental health diagnosis, sleep apnea, morbid obesity)? @ -COPD Was patient admitted / discharged? Hospital course, mention meds given and route, prescriptions, significant lab abnormalities, going to OR and other pertinent info. @ -Discharge patient was recommended to be admitted patient declines he understands risk of leaving. Patient had 2 syncopal episodes workup including labs, x-ray, EKG, chest x-ray, CT shows no acute process did recommend admission for cardiac evaluation, echocardiogram given risk factors. Patient declines. Undiagnosed new problem with uncertain prognosis? @ -No Drug Therapy requiring intensive monitoring for toxicity (Heparin, Nitro, Insulin, Cardizem)? @ -No Were any procedures done? @ -No Diagnosis/symptom? @ -Syncope Acute, or Chronic, or Acute on Chronic? @ -Acute Uncomplicated (without systemic symptoms) or Complicated (systemic symptoms)? @ -Complicated. Side effects of treatment? @ -No Exacerbation, Progression, or Severe Exacerbation? @ -No Poses a threat to life or bodily function? How? (Chest pain, [place], DE, pneumonia, PE, COPD, DKA, ARF, appy, cholecystitis, CVA, Diverticulitis, Homicidal, Suicidal, threat to staff... and all critical care pts) @ -yes possible underlying cardiac issue - Lab Data Result diagrams: 05/03/23 12:49 05/03/23 12:49 Lab Results 05/03/23 05/03/23 05/03/23 Range/Units 12:49 12:49 12:49 WBC 11.9 H (3.8-10.6) k/uL RBC 5.71 (4.30-5.90) m/uL Hgb 18.6 H (13.0-17.5) gm/dL Hct 53.5 H (39.0-53.0) % MCV 93.6 (80.0-100.0) fL MCH 32.6 (25.0-35.0) pg MCHC 34.8 (31.0-37.0) g/dL RDW 13.2 (11.5-15.5) % Plt Count 217 (150-450) k/uL MPV 8.6 Neutrophils % (Manual) 91 % Band Neuts % (Manual) 1 % Lymphocytes % (Manual) 4 % Monocytes % (Manual) 4 % Neutrophils # (Manual) 10.90 H (1.3-7.7) k/uL Lymphocytes # (Manual) 0.48 L (1.0-4.8) k/uL Monocytes # (Manual) 0.48 (0-1.0) k/uL Nucleated RBCs 0 (0-0) /100 WBC Manual Slide Review Performed PT 10.8 (10.0-12.5) sec INR 1.0 (<1.2) APTT 28.5 (22.0-30.0) sec D-Dimer 0.74 H (<0.60) mg/L FEU Sodium 139 (137-145) mmol/L Potassium 4.7 (3.5-5.1) mmol/L Chloride 108 H (98-107) mmol/L Carbon Dioxide 19 L (22-30) mmol/L Anion Gap 12 mmol/L BUN 18 (9-20) mg/dL Creatinine 0.86 (0.66-1.25) mg/dL Est GFR (CKD-EPI)AfAm >90 (>60 ml/min/1.73 sqM) Est GFR (CKD-EPI)NonAf >90 (>60 ml/min/1.73 sqM) Glucose 112 H (74-99) mg/dL Calcium 9.4 (8.4-10.2) mg/dL Magnesium 1.9 (1.6-2.3) mg/dL Total Bilirubin 1.3 (0.2-1.3) mg/dL AST 30 (17-59) U/L ALT 27 (4-49) U/L Alkaline Phosphatase 87 (38-126) U/L Troponin I (0.000-0.034) ng/mL Total Protein 8.5 H (6.3-8.2) g/dL Albumin 4.8 (3.5-5.0) g/dL 05/03/23 Range/Units 12:49 WBC (3.8-10.6) k/uL RBC (4.30-5.90) m/uL Hgb (13.0-17.5) gm/dL Hct (39.0-53.0) % MCV (80.0-100.0) fL MCH (25.0-35.0) pg MCHC (31.0-37.0) g/dL RDW (11.5-15.5) % Plt Count (150-450) k/uL MPV Neutrophils % (Manual) % Band Neuts % (Manual) % Lymphocytes % (Manual) % Monocytes % (Manual) % Neutrophils # (Manual) (1.3-7.7) k/uL Lymphocytes # (Manual) (1.0-4.8) k/uL Monocytes # (Manual) (0-1.0) k/uL Nucleated RBCs (0-0) /100 WBC Manual Slide Review PT (10.0-12.5) sec INR (<1.2) APTT (22.0-30.0) sec D-Dimer (<0.60) mg/L FEU Sodium (137-145) mmol/L Potassium (3.5-5.1) mmol/L Chloride (98-107) mmol/L Carbon Dioxide (22-30) mmol/L Anion Gap mmol/L BUN (9-20) mg/dL Creatinine (0.66-1.25) mg/dL Est GFR (CKD-EPI)AfAm (>60 ml/min/1.73 sqM) Est GFR (CKD-EPI)NonAf (>60 ml/min/1.73 sqM) Glucose (74-99) mg/dL Calcium (8.4-10.2) mg/dL Magnesium (1.6-2.3) mg/dL Total Bilirubin (0.2-1.3) mg/dL AST (17-59) U/L ALT (4-49) U/L Alkaline Phosphatase (38-126) U/L Troponin I <0.012 (0.000-0.034) ng/mL Total Protein (6.3-8.2) g/dL Albumin (3.5-5.0) g/dL Disposition Clinical Impression: Syncope Disposition: HOME SELF-CARE Condition: Stable Instructions (If sedation given, give patient instructions): Syncope (ED) Additional Instructions: Please return to the Emergency Department if symptoms worsen or any other concerns. Is patient prescribed a controlled substance at d/c from ED?: No Referrals: Baron Worley MD [Primary Care Provider] - 1-2 days Etienne Vanessa MD [Medical Doctor] - 1-2 days Time of Disposition: 16:04
[2023-05-03 13:34] VITALS: RESP 16
[2023-05-03 14:10] LABS: Partial Thromboplastin Time 28.5 sec (22.0-30.0); Prothrombin Time 10.8 sec (10.0-12.5)
[2023-05-03 14:12] LABS: HCT 53.5 % (39.0-53.0); HGB 18.6 gm/dL (13.0-17.5); MCH 32.6 pg (25.0-35.0); MCHC 34.8 g/dL (31.0-37.0); MCV 93.6 fL (80.0-100.0); Mean Platelet Volume 8.6; Platelet Count 217 k/uL (150-450); RBC 5.71 m/uL (4.30-5.90); RDW 13.2 % (11.5-15.5); WBC 11.9 k/uL (3.8-10.6)
[2023-05-03 14:17] LABS: ALT 27 U/L (4-49); African American GFR (CKD) >90 (>60 ml/min/1.73 sqM); Albumin 4.8 g/dL (3.5-5.0); Anion Gap 12 mmol/L; Blood Urea Nitrogen 18 mg/dL (9-20); Calcium 9.4 mg/dL (8.4-10.2); Carbon Dioxide 19 mmol/L (22-30); Chloride 108 mmol/L (98-107); Glucose 112 mg/dL (74-99); Non-African American GFR(CKD) >90 (>60 ml/min/1.73 sqM); Sodium 139 mmol/L (137-145); Total Bilirubin 1.3 mg/dL (0.2-1.3); Total Protein 8.5 g/dL (6.3-8.2)
[2023-05-03 14:36] LABS: Potassium 4.7 mmol/L (3.5-5.1)
[2023-05-03 14:37] LABS: AST 30 U/L (17-59); Alkaline Phosphatase 87 U/L (38-126); Magnesium 1.9 mg/dL (1.6-2.3)
[2023-05-03 14:39] LABS: Band Neutrophils % 1 %; Lymphocytes # (M) 0.48 k/uL (1.0-4.8); Monocytes # (M) 0.48 k/uL (0-1.0); Neutrophils % (M) 91 %; Nucleated Red Blood Cells 0 /100 WBC (0-0); Total Cells Counted 100
--- NOTE | 2023-05-03 15:12 | CT ---
EXAMINATION TYPE: CT chest angio for PE DATE OF EXAM: 05/03/2023 COMPARISON: None HISTORY: Elevated d-dimer, syncope CT DLP: 408.9 mGycm CONTRAST: CT chest with contrast and 3D reconstruction with MIP imaging is performed with IV Contrast, patient injected with 80 mL of Isovue 370. Contrast-enhanced CT of the chest was performed through the course of the pulmonary arteries with yaquelin g and mediastinal window settings submitted. 3D reconstruction with MIP imaging was also performed. PULMONARY ARTERIES: The pulmonary arteries and their major tributaries are patent. I do not see david dence for sizable filling defect to suggest pulmonary embolic process. LUNGS: The lungs are clear and free of infiltrate. Basilar compressive atelectasis. Centrilobular emp hysema. No pulmonary nodule or mass is detected. No pleural effusion. MEDIASTINUM: Thoracic aorta is of normal caliber,however, evaluation is limited given timing of the contrast bolus. If there is concern for thoracic aortic pathology consider ROHIT. Correlate clinicall y . The heart is not enlarged. No evidence for mediastinal mass. No mediastinal lymph nodes greater than 1cm. HILAR STRUCTURES: No evidence for mass. No hilar lymph nodes greater than 1 cm. UPPER ABDOMEN: No significant abnormality is seen. IMPRESSION: 1. No evidence for Pulmonary embolism at this time.
[2023-05-03 16:29] VITALS: BP 126/83; PULSE 98; TEMP 98.4
== END 2023-05-03 16:30 | disposition home or self-care (01) ==
LOC: EC 11:50
DX: R55 Syncope and collapse (principal); R00.0 Tachycardia, unspecified; J32.0 Chronic maxillary sinusitis; J44.9 Chronic obstructive pulmonary disease, unspecified; F17.200 Nicotine dependence, unspecified, uncomplicated
CPT/HCPCS: 36415; 93005; 85379; 80053; 83735; 84484; 85025; 85610; 85730; 71046; 72125; 70450; 71275; 99284; Q9967

== ENCOUNTER → 2023-07-15 | Outpatient (CLI) | payer BC ==
[2023-07-15 16:26] LABS: LDL Cholesterol,Calculated 142.1 mg/dL (0.0-131.0)
== END | disposition home or self-care (01) ==
LOC: LABWHC1 11:57
PROVIDERS: ATTEND Internal Medicine Clinical Cardiac Electrophysiology
DX: E78.5 Hyperlipidemia, unspecified (principal)
CPT/HCPCS: 36415; 80061

== ENCOUNTER → 2024-09-02 | Outpatient (CLI) | payer OTHER ==
--- NOTE | 2024-09-02 14:18 | XR ---
EXAMINATION TYPE: XR chest 2V, XR ribs RT DATE OF EXAM: 09/02/2024 CLINICAL INDICATION: Male, 48 years old with history of S29.019A STRAIN OF MUSCLE AND TENDON OF UNSP WALL, TECHNIQUE: Frontal and lateral views of the chest are obtained. The frontal and oblique images of th e right-sided ribs. COMPARISON: Prior chest x-ray and CT May 03, 2023 FINDINGS: There is some chronic emphysematous changes bilaterally without suspicious new focal air s pace opacity, pleural effusion, or pneumothorax seen. The cardiac silhouette size is stable and with in normal limits. The osseous structures are intact. No acute displaced right-sided rib fractures. Overlying soft tissues are unremarkable. IMPRESSION: 1. Chronic emphysematous changes without acute pulmonary process. No acute displaced right-sided rib fractures. [facility], , 09/02/2024 2:16 PM
== END | disposition home or self-care (01) ==
LOC: RADXRMAIN 13:48
PROVIDERS: ATTEND Emergency Medicine
DX: S29.019A Strain of muscle and tendon of unspecified wall of thorax, initial encounter (principal); X58.XXXA Exposure to other specified factors, initial encounter
CPT/HCPCS: 71046